=== PATIENT | male | born 1990 | race Caucasian/White ===

== ENCOUNTER 2017-02-10 15:19 | Inpatient (IN) | payer OTHER ==
[2017-02-10] VITALS (9 sets, daily range): BP systolic 121–139; BP diastolic 62–90; PULSE 64–82; RESP 16–20; TEMP 96.9–100; O2SAT 97–100
[~2017-02-10] VITALS: Ht 165.1 cm; Wt 84.0 kg
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
[2017-02-10] MEDS ORDERED: MORPHINE SULFATE 4 MG/ML INJ IV PUSH PRN (17:00)
[2017-02-10] MEDS ORDERED: ONDANSETRON HCL 4 MG/2 ML VIAL IV PRN ×2 (17:00→23:00)
[2017-02-10] MEDS ORDERED: SODIUM CHLORIDE 0.9% FLUSH 10 ML FLUSH IVF PRN (17:00)
[2017-02-10] MEDS ORDERED: SODIUM CHLOR 0.9% 1000 ML INJ 1,000 ML IV ONE (17:00)
[2017-02-10] MEDS ORDERED: SODIUM CHLORIDE 0.9% FLUSH 10 ML FLUSH IV FLUSH SCH (21:00)
[2017-02-10] MEDS: SODIUM CHLOR 0.9% 1000 ML INJ 1,000 ML IV SCH (22:57)
[2017-02-10] MEDS ORDERED: MORPHINE SULFATE 4 MG/ML INJ IV PRN (23:00)
[2017-02-10] MEDS ORDERED: Post-op Orders (for Pharmacy) MISC XX ONE (23:00)
[2017-02-10] MEDS ORDERED: SODIUM CHLORIDE 0.9% FLUSH 10 ML FLUSH IV FLUSH PRN (23:00)
[2017-02-10] MEDS ORDERED: NALOXONE HCL 0.4 MG/ML AMP IV PRN (23:00)
[2017-02-10] MEDS: PANTOPRAZOLE SOD 40 MG DELAYED RELEASE TAB PO SCH (23:38)
[2017-02-11 04:05] VITALS: BP 130/83; PULSE 79; RESP 18; TEMP 97.1; O2SAT 98
[2017-02-11 07:12] LABS: AUTOMATED NEUTROPHIL # 6.7 TH/MM3 (1.8-7.7); BASOPHIL % 0.1 % (0.0-2.0); EOSINOPHIL % 0.3 % (0.0-4.0); HEMATOCRIT 36.7 % (39.0-51.0); HEMO FLAGS DIFF FINAL; LYMPH % 25.4 % (9.0-44.0); LYMPHOCYTE # 2.6 TH/MM3 (1.0-4.8); MEAN CELL VOLUME 88.8 FL (80.0-100.0); MEAN CORPUSCULAR HEMOGLOBIN 30.6 PG (27.0-34.0); MEAN CORPUSCULAR HGB CONC 34.5 % (32.0-36.0); MONO % 8.7 % (0.0-8.0); NEUT % 65.5 % (16.0-70.0); PLATELET COUNT 125 TH/MM3 (150-450); RED BLOOD COUNT 4.13 MIL/MM3 (4.50-5.90); RED CELL DISTRIBUTION WIDTH 13.3 % (11.6-17.2); WHITE BLOOD COUNT 10.2 TH/MM3 (4.0-11.0)
[2017-02-11 07:35] LABS: BICARBONATE 23.7 MEQ/L (21.0-32.0); POTASSIUM 3.4 MEQ/L (3.5-5.1)
[2017-02-11 07:41] LABS: INDIRECT BILIRUBIN 0.8 MG/DL (0.0-0.8); TOTAL BILIRUBIN ADULT 1.1 MG/DL (0.2-1.0)
[2017-02-11] MEDS ORDERED: POTASSIUM CHLORIDE 20 MEQ CONTROLLED RELEASE TAB PO ONE (07:45)
[2017-02-11 07:46] VITALS: BP 130/81; PULSE 67; RESP 17; TEMP 96.7; O2SAT 99
[2017-02-11] MEDS: SODIUM CHLOR 0.9% 1000 ML INJ 1,000 ML IV SCH ×2 (08:14→18:57)
[2017-02-11] MEDS: SODIUM CHLORIDE 0.9% FLUSH 10 ML FLUSH IV FLUSH SCH ×2 (08:15→22:10)
[2017-02-11] MEDS: DOCUSATE SODIUM 100 MG CAP PO SCH ×2 (08:15→22:10)
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
[2017-02-11 11:27] VITALS: BP 116/80; PULSE 74; RESP 17; TEMP 96.8; O2SAT 100
[2017-02-11] MEDS ORDERED: MAGN400S PO (13:50)
[2017-02-11] MEDS ORDERED: DOCU1CAP39 PO (13:50)
[2017-02-11] MEDS ORDERED: IOHEXOL 350 MG/ML 10 ML VIAL (for RAD DIAG) IV ONE (14:50)
--- NOTE | 2017-02-11 15:29 | RADRPT ---
EXAM DATE/TIME: 02/11/2017 14:37 [place] COMPARISON: No previous studies available for comparison. INDICATIONS : Evaluate liver/ spleen laceration. IV CONTRAST: 100 cc Omnipaque 350 ORAL CONTRAST: No oral contrast ingested. RADIATION DOSE: 9.96 CTDIvol (mGy) MEDICAL HISTORY : None SURGICAL HISTORY : None. ENCOUNTER: Subsequent ACUITY: 3 days PAIN SCALE: 5/10 LOCATION: Bilateral abdomen TECHNIQUE: Volumetric scanning of the abdomen and pelvis was performed. Using automated exposure control and ad justment of the mA and/or kV according to patient size, radiation dose was kept as low as reasonably achievable to obtain optimal diagnostic quality images. DICOM format image data is available electro nically for review and comparison. FINDINGS: There is evidence of a laceration involving the anterior aspect of the spleen with small perisplenic fluid collection consistent with hemorrhage. Mild splenomegaly is noted. There is also a small amoun t of free fluid within the pelvis likely related to splenic hemorrhage. Tiny bilateral pleural effus ions with adjacent compressive atelectasis are also noted. Some gallbladder sludge is noted. The li jeff is unremarkable without lacerations, nodule or ductal dilatation. The pancreas is normal. The ad renal glands are normal bilaterally. The kidneys enhance briskly and demonstrate no evidence of foca l mass or hydronephrosis. The abdominal aorta and inferior vena cava are normal. There is no paraaor tic, retroperitoneal or mesenteric lymphadenopathy. The urinary bladder is unremarkable. The prosta te gland is normal. Degenerative changes and scoliosis of the thoracolumbar spine are noted. CONCLUSION: 1. Laceration involving the anterior aspect of the spleen with perisplenic hemorrhage and fluid withi n the pelvis likely related to splenic hemorrhage. 2. Mild splenomegaly. 3. Tiny bilateral pleural effusions with adjacent compressive atelectasis. 4. Gallbladder sludge. 5. Mild degenerative changes and scoliosis of the thoracolumbar spine. Ananda Christina MD on February 11, 2017 at 14:59 Board Certified Radiologist. This report was verified electronically.
[2017-02-11 15:32] VITALS: BP 136/82; PULSE 72; RESP 17; TEMP 97.6; O2SAT 99
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
[2017-02-11 19:00] VITALS: BP 140/87; PULSE 85; RESP 16; TEMP 98.9; O2SAT 99
[2017-02-11] MEDS ORDERED: MAGNESIUM HYDROXIDE SUSP 30 ML CUP PO SCH (21:00)
[2017-02-11] MEDS: PANTOPRAZOLE SOD 40 MG DELAYED RELEASE TAB PO SCH (22:11)
[2017-02-11 23:51] VITALS: O2SAT 99
[2017-02-12] VITALS: BP 124/76; PULSE 76; RESP 16; TEMP 98.6; O2SAT 96
[2017-02-12] MEDS: SODIUM CHLOR 0.9% 1000 ML INJ 1,000 ML IV SCH ×2 (04:16→14:57)
[2017-02-12 07:18] LABS: AUTOMATED NEUTROPHIL # 4.3 TH/MM3 (1.8-7.7); BASOPHIL % 0.1 % (0.0-2.0); EOSINOPHIL # 0.1 TH/MM3 (0-0.4); EOSINOPHIL % 0.9 % (0.0-4.0); HEMATOCRIT 37.5 % (39.0-51.0); HEMO FLAGS DIFF FINAL; LYMPH % 35.9 % (9.0-44.0); LYMPHOCYTE # 2.9 TH/MM3 (1.0-4.8); MEAN CELL VOLUME 88.4 FL (80.0-100.0); MEAN CORPUSCULAR HEMOGLOBIN 30.5 PG (27.0-34.0); MEAN CORPUSCULAR HGB CONC 34.6 % (32.0-36.0); MONO % 9.6 % (0.0-8.0); NEUT % 53.5 % (16.0-70.0); PLATELET COUNT 127 TH/MM3 (150-450); RED BLOOD COUNT 4.25 MIL/MM3 (4.50-5.90); RED CELL DISTRIBUTION WIDTH 13.2 % (11.6-17.2)
[2017-02-12 07:45] LABS: ALT (GPT) 87 U/L (12-78); ANION GAP 9 MEQ/L (5-15); AST (GOT) 44 U/L (15-37); BICARBONATE 23.5 MEQ/L (21.0-32.0); BLOOD UREA NITROGEN 8 MG/DL (7-18); CHLORIDE 105 MEQ/L (98-107); GLOMERULAR FILTRATION RATE 133 ML/MIN (>89); POTASSIUM 3.6 MEQ/L (3.5-5.1); SODIUM (NA) 137 MEQ/L (136-145)
[2017-02-12 07:47] LABS: ALKALINE PHOSPHATASE 86 U/L (45-117); TOTAL BILIRUBIN ADULT 1.2 MG/DL (0.2-1.0)
[2017-02-12 08:00] VITALS: BP 120/80; PULSE 71; RESP 18; TEMP 97.3; O2SAT 97
[2017-02-12] MEDS: oxyCODONE/ACETAMINOPHEN 5 MG/325 MG TAB PO PRN ×2 (08:58→13:20)
[2017-02-12] MEDS: SODIUM CHLORIDE 0.9% FLUSH 10 ML FLUSH IV FLUSH SCH (09:00)
[2017-02-12] MEDS: DOCUSATE SODIUM 100 MG CAP PO SCH (09:00)
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
[2017-02-12] MEDS ORDERED: PERC2.5T PO (11:14)
[2017-02-12 12:00] VITALS: BP 115/69; PULSE 62; RESP 18; TEMP 97.5; O2SAT 99
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
[2017-02-12 16:00] VITALS: BP 127/69; PULSE 76; RESP 18; TEMP 97.7; O2SAT 97
== END 2017-02-12 18:25 | disposition home or self-care (01) | DRG 441 ==
LOC: NEPC 15:19 → NEDA 16:49 → N03A 21:58 → N06A 23:00
PROVIDERS: ADMIT Surgery; ATTEND Surgery
DX: S36.114A Minor laceration of liver, initial encounter (principal); S36.031A Moderate laceration of spleen, initial encounter; F17.210 Nicotine dependence, cigarettes, uncomplicated; V49.50XA Passenger injured in collision with unspecified motor vehicles in traffic accident, initial encounter
CPT/HCPCS: 74177; 80048; 80053; 80076; 85025; 94150; J2270; J2405; J7030; Q9967